=== PATIENT | male | born 2005 | race Caucasian/White ===

== ENCOUNTER 2024-04-18 16:40 | Emergency (ER) | payer OTHER ==
[~2024-04-18] VITALS: Ht 170.2 cm; Wt 64.2 kg
[2024-04-18 18:59] LABS: HEMATOCRIT 41.1 % (42.0-52.0); HEMOGLOBIN 14.1 g/dl (13.5-17.5); MEAN CORPUSCULAR HEMOGLOBIN 29.7 pg (27.0-33.0); MEAN CORPUSCULAR HGB CONC 34.3 g/dl (32.0-36.5); MEAN CORPUSCULAR VOLUME 86.7 fl (80.0-96.0); PLATELET COUNT, AUTOMATED 281 10^3/uL (150-450); RED BLOOD COUNT 4.74 10^6/uL (4.30-6.10); WHITE BLOOD COUNT 6.8 10^3/uL (4.0-10.0)
[2024-04-18 19:32] LABS: ALBUMIN 4.5 G/DL (3.2-5.2); BILIRUBIN,DIRECT 0.4 MG/DL (<0.4); BILIRUBIN,TOTAL 1.1 MG/DL (0.3-1.2); TOTAL PROTEIN 8.5 G/DL (5.7-8.2)
[2024-04-18] MEDS ORDERED: ISOVUE-370 76% 100ML VIAL As Ordered ONE (19:36)
[2024-04-18] MEDS: ONDANSETRON 4MG 2ML VIAL IV ONE (19:40)
[2024-04-18] MEDS: KETOROLAC 30 MG/ML 1ML VIAL IV ONE (19:41)
[2024-04-18 20:16] LABS: ATYPICAL LYMPH 5 % (0-5); BASOPHILS 1 % (0-1); LYMPHOCYTES 29 % (16-44); MONOCYTES 14 % (0-5); NEUTROPHILS 51 % (28-66)
[2024-04-18 20:18] LABS: PLATELET ESTIMATE NORMAL (NORMAL)
[2024-04-18 20:35] VITALS: BP 126/60; TEMP 97.2; O2SAT 100
[2024-04-18] MEDS ORDERED: IBUP-1022 PO (21:13)
[2024-04-18] MEDS ORDERED: ONDA-282 PO (21:13)
[2024-04-18] MEDS ORDERED: FLOM0.4C39 PO (21:13)
== END 2024-04-18 21:23 | disposition home or self-care (01) ==
LOC: M ED 16:40
DX: N20.1 Calculus of ureter (principal)
CPT/HCPCS: 74177; 80047; 80076; 81001; 83690; 85025; 96374; 96375; 99284; J1885; J2405; Q9967

== ENCOUNTER 2024-04-22 02:24 | Emergency (ER) | payer OTHER ==
[~2024-04-22] VITALS: Ht 170.2 cm; Wt 64.5 kg
[~2024-04-22 02:24] MED LIST: FLOM0.4C39 PO; IBUP-1022 PO; ONDA-282 PO
[2024-04-22] MEDS: KETOROLAC 30 MG/ML 1ML VIAL IV ONE (03:11)
[2024-04-22] MEDS: ONDANSETRON 4MG 2ML VIAL IV ONE (03:11)
[2024-04-22] MEDS: NS 1,000 ML IV ONE (03:11)
[2024-04-22 03:26] LABS: BASO % 0.1 % (0.0-1.0); HEMATOCRIT 38.1 % (42.0-52.0); HEMOGLOBIN 13.5 g/dl (13.5-17.5); LYMPH # 1.1 10^3/uL (1.5-5.0); LYMPH % 6.6 % (24.0-44.0); MEAN CORPUSCULAR HEMOGLOBIN 30.8 pg (27.0-33.0); MEAN CORPUSCULAR HGB CONC 35.4 g/dl (32.0-36.5); MEAN CORPUSCULAR VOLUME 86.8 fl (80.0-96.0); MONO # 0.4 10^3/uL (0.0-0.8); MONO % 2.5 % (2.0-8.0); NEUTROPHILS # 14.6 10^3/uL (1.5-8.5); NEUTROPHILS % 90.5 % (36.0-66.0); PLATELET COUNT, AUTOMATED 338 10^3/uL (150-450); RED BLOOD COUNT 4.39 10^6/uL (4.30-6.10); WHITE BLOOD COUNT 16.1 10^3/uL (4.0-10.0)
[2024-04-22 03:46] LABS: LIPASE 23 U/L (12-53)
[2024-04-22 03:48] LABS: ALBUMIN 4.5 G/DL (3.2-5.2); ALKALINE PHOSPHATASE 61 U/L (46-116); ALT/SGPT 17 U/L (7.0-40); AST/SGOT 11 U/L (<34); BILIRUBIN,DIRECT 0.3 MG/DL (<0.4); BILIRUBIN,TOTAL 0.7 MG/DL (0.3-1.2); BLOOD UREA NITROGEN 21 MG/DL (9-23); CALCIUM LEVEL 9.2 MG/DL (8.5-10.1); CARBON DIOXIDE LEVEL 30 MMOL/L (20-31); CHLORIDE LEVEL 105 MMOL/L (98-107); CREATININE FOR GFR 1.01 MG/DL (0.70-1.30); GLUCOSE, FASTING 120 MG/DL (60-100); SODIUM LEVEL 140 MMOL/L (136-145); TOTAL PROTEIN 8.2 G/DL (5.7-8.2)
[2024-04-22 04:09] VITALS: TEMP 98.6
[2024-04-22] MEDS ORDERED: MORPHINE 4 MG/ML 1ML VIAL IV PRN (04:10)
[2024-04-22] MEDS: METOCLOPRAMIDE INJ 10MG/2ML VIAL IV ONE (04:31)
[2024-04-22] MEDS ORDERED: ONDA-282 PO (04:43)
[2024-04-22] MEDS ORDERED: KETO10TAB PO (04:43)
[2024-04-22] MEDS ORDERED: FLOM0.4C39 PO (04:43)
[2024-04-22] MEDS: TAMSULOSIN 0.4 MG CAP PO ONE (04:49)
[2024-04-22 05:24] VITALS: O2SAT 98
[2024-04-22 05:30] VITALS: BP 112/67
== END 2024-04-22 05:36 | disposition home or self-care (01) ==
LOC: EDBD 02:24 → M ED 02:24
DX: N20.1 Calculus of ureter (principal); Z91.148 Patient's other noncompliance with medication regimen for other reason; Z87.442 Personal history of urinary calculi; Z91.041 Radiographic dye allergy status
CPT/HCPCS: 74176; 80048; 80076; 81001; 83690; 85025; 87040; 87077; 87186; 93041; 96361; 96374; 96375; 99285; J1885; J2405; J2765

== ENCOUNTER → 2024-06-16 | Outpatient (REF) | payer OTHER ==
[~2024-06-16] MED LIST changes: +KETO10TAB PO
[2024-06-17 14:04] LABS: ALBUMIN 3.8 G/DL (3.2-5.2); ALKALINE PHOSPHATASE 60 U/L (40-129); ALT/SGPT 13 U/L (7.0-40); AST/SGOT < 8 U/L (<34); BILIRUBIN,TOTAL 0.6 MG/DL (0.3-1.2); BLOOD UREA NITROGEN 20 MG/DL (9-23); CALCIUM LEVEL 9.7 MG/DL (8.5-10.1); CARBON DIOXIDE LEVEL 32 MMOL/L (20-31); CHLORIDE LEVEL 105 MMOL/L (98-107); CREATININE FOR GFR 0.72 MG/DL (0.70-1.30); GLUCOSE, FASTING 90 MG/DL (60-100); POTASSIUM SERUM 4.2 MMOL/L (3.5-5.1); SODIUM LEVEL 142 MMOL/L (136-145); TOTAL PROTEIN 8.3 G/DL (5.7-8.2)
[2024-06-17 14:05] LABS: THYROID STIMULATING HORMONE 2.797 uIU/ML (0.48-4.17)
[2024-06-17 14:06] LABS: TOTAL 25(OH) VITAMIN D 36.4 NG/ML (20.0-100.0); VITAMIN B12 LEVEL 788 PG/ML (211-911)
[2024-06-17 14:07] LABS: BASO % 0.4 % (0.0-1.0); EOS # 0.1 10^3/uL (0.0-0.5); EOS % 1.1 % (0.0-3.0); HEMATOCRIT 41.7 % (42.0-52.0); HEMOGLOBIN 14.1 g/dl (13.5-17.5); LYMPH # 1.8 10^3/uL (1.5-5.0); LYMPH % 23.9 % (24.0-44.0); MEAN CORPUSCULAR HEMOGLOBIN 30.7 pg (27.0-33.0); MEAN CORPUSCULAR HGB CONC 33.8 g/dl (32.0-36.5); MEAN CORPUSCULAR VOLUME 90.7 fl (80.0-96.0); MONO # 0.6 10^3/uL (0.0-0.8); MONO % 8.3 % (2.0-8.0); NEUTROPHILS % 65.8 % (36.0-66.0); PLATELET COUNT, AUTOMATED 367 10^3/uL (150-450); WHITE BLOOD COUNT 7.6 10^3/uL (4.0-10.0)
[2024-06-17 14:36] LABS: HIV 1&2 SCREEN NEGATIVE (NEGATIVE)
[2024-06-17 14:44] LABS: HEPATITIS C VIRUS ABY INDEX 0.04 INDEX (<0.8)
[2024-06-17 14:51] LABS: FOLATE > 24.0 NG/ML (>5.4)
[2024-06-22 15:08] LABS: LYME TOTAL ANTIBODY CIA <= 0.90 Index (<=0.90)
== END ==
LOC: M LAB REF 12:48
PROVIDERS: ATTEND Physician Assistant
DX: Z11.9 Encounter for screening for infectious and parasitic diseases, unspecified (principal); E55.9 Vitamin D deficiency, unspecified; R05.3 Chronic cough; R20.2 Paresthesia of skin

== ENCOUNTER → 2024-07-07 | Outpatient (REF) | payer OTHER ==
[2024-07-07 13:21] LABS: PERCENT SATURATION 25.1 % (19.7-50.0)
[2024-07-07 13:23] LABS: FERRITIN 69.1 NG/ML (10.5-307.3)
== END ==
LOC: M LAB REF 12:25
PROVIDERS: ATTEND Physician Assistant
DX: D64.9 Anemia, unspecified (principal)